=== PATIENT | female | born 1955 | race Caucasian/White ===

== ENCOUNTER 2019-06-20 05:16 | Inpatient (IN) ==
[2019-06-12 15:28] LABS: Appearance,Urine CLEAR; Bacteria,Urine 0 /hpf (0); Bilirubin,Urine NEG (NEG); Color,Urine YELLOW; Culture Indicated,Urine YES; Glucose,Urine (UA) NEGATIVE (NEG); Ketones,Urine NEG (NEG); Leukocyte Esterase,Urine 25 /uL (NEG); Mucus,Urine FEW /hpf (0); Nitrate,Urine POS (NEG); Protein,Urine NEG (NEG); Specific Gravity,Urine 1.013 (1.000-1.035); Urine Blood 0.2 mg/dL (<0.03); Urine Hyaline Cast 20 /lpf (0-2); Urine RBC < 1 /hpf (0-1); Urine Squamous Epithelial Cell 0 /hpf (0-4); Urine WBC 9 /hpf (0-4); Urobilinogen,Urine NEG (NEG)
[2019-06-12 15:29] LABS: INR 0.9 (0.9-1.1); Prothrombin Time 12.5 sec (11.9-14.5)
[2019-06-12 16:05] LABS: Blood Urea Nitrogen 19 mg/dl (8-23); Calcium 9.3 mg/dl (8.6-10.4); Carbon Dioxide 28 mmol/L (22-30); Chloride 98 mmol/L (96-108); Glomerular Filtration Rate 53; Glucose 72 mg/dL (70-105)
[2019-06-12 16:07] LABS: Basophils # (Auto) 0 K/mcL (0.0-0.3); Basophils % (Auto) 0.3 % (0.0-2.0); Eosinophils # (Auto) 0.1 K/mcL (0.0-0.7); Eosinophils % (Auto) 1.3 % (0.0-7.0); Granulocytes % (Auto) 65.5 % (38.0-78.0); Hematocrit 36.8 % (36.0-48.0); Hemoglobin 12.4 g/dL (12.0-15.0); Lymphocytes # (Auto) 3.3 K/mcL (1.5-4.8); Lymphocytes % (Auto) 28.7 % (15.5-49.0); Mean Cell Volume 88.2 fL (80.0-100.0); Mean Corpuscular HGB Conc 33.6 g/dL (31.0-36.0); Mean Platelet Volume 8.1 fL (7.4-10.4); Monocytes # (Auto) 0.5 K/mcL (0.1-0.9); Monocytes % (Auto) 4.2 % (1.0-12.0); Platelet Count 388 K/mcL (140-440); RBC 4.18 M/mcL (4.00-5.20); Red Cell Distribution Width 12.9 % (11.5-14.5); WBC 11.6 K/mcL (4.5-11.0)
[~2019-06-20 05:16] MED LIST: IPRATROPIUM/ALBUTEROL 3 ML AMPUL.NEB NEB PRN; SCOPOLAMINE 1 PATCH PATCH TOPICAL PRN
[2019-06-20] MEDS ORDERED: 0.9 % SODIUM CHLORIDE 9 ML, KETOROLAC 30 MG, ROPIVACAINE HCL/PF 49.5 ML, EPINEPHrine 0.... IJ SCH (06:00)
[2019-06-20] MEDS ORDERED: ceFAZolin 2 GM in DEXTROSE 5% IN WATER 50 ML IV SCH (06:00)
[2019-06-20 06:41] LABS: Appearance,Urine CLEAR; Bacteria,Urine 0 /hpf (0); Bilirubin,Urine NEG (NEG); Color,Urine YELLOW; Culture Indicated,Urine NO; Glucose,Urine (UA) NORM (NEG); Ketones,Urine NEG (NEG); Leukocyte Esterase,Urine NEG /uL (NEG); Mucus,Urine FEW /hpf (0); Nitrate,Urine NEG (NEG); Protein,Urine NEG (NEG); Urine Blood TRACE ery/mcL (<5); Urine Hyaline Cast 6 /lpf (0-2); Urine RBC 9 /hpf (0-1); Urine Squamous Epithelial Cell 0 /hpf (0-4); Urine WBC 1 /hpf (0-4)
[2019-06-20] MEDS ORDERED: GENTAMICIN SULFATE 800 MG/20 ML VIAL IR ONE (06:56)
[2019-06-20] MEDS ORDERED: TRANEXAMIC ACID 1,000 MG/10 ML VIAL IV ONE ×2 (07:35→09:34)
[2019-06-20] MEDS ORDERED: ONDANSETRON 4 MG/2 ML VIAL IV ONE (07:35)
[2019-06-20] MEDS ORDERED: GLYCOPYRROLATE 0.2 MG/ML VIAL IV ONE (07:35)
[2019-06-20] MEDS ORDERED: PROPOFOL 200 MG/20 ML VIAL IV ONE (07:35)
[2019-06-20] MEDS ORDERED: MIDAZOLAM 5 MG/5 ML VIAL IV ONE (07:35)
[2019-06-20] MEDS ORDERED: LIDOCAINE HCL/PF 100 MG/5 ML SYRINGE IV ONE (07:35)
[2019-06-20] MEDS ORDERED: ePHEDrine 50 MG/ML AMPUL IV ONE (07:35)
[2019-06-20] MEDS ORDERED: DEXAMETHASONE 10 MG/ML VIAL IV ONE (07:35)
[2019-06-20] MEDS ORDERED: HYDROmorphone 2 MG/ML VIAL IV PRN (08:43)
[2019-06-20] MEDS ORDERED: ACETAMINOPHEN 1,000 MG/100 ML BOTTLE IV ONE (08:43)
[2019-06-20] MEDS ORDERED: METOPROLOL TARTRATE 5 MG/5 ML VIAL IV PRN (08:43)
[2019-06-20] MEDS ORDERED: NALOXONE HCL 0.4 MG/ML VIAL IV PRN (08:43)
[2019-06-20] MEDS ORDERED: diphenhydrAMINE 50 MG/ML VIAL IV PRN (08:43)
[2019-06-20] MEDS ORDERED: FLUMAZENIL 0.1 MG/ML ML IV PRN (08:43)
[2019-06-20] MEDS ORDERED: ePHEDrine 50 MG/ML AMPUL IV PRN (08:43)
[2019-06-20] MEDS ORDERED: PROMETHAZINE 25 MG/ML VIAL IV PRN (08:43)
[2019-06-20] MEDS ORDERED: IPRATROPIUM/ALBUTEROL 3 ML AMPUL.NEB NEB PRN (08:43)
[2019-06-20] MEDS ORDERED: ONDANSETRON 4 MG/2 ML VIAL IV PRN ×2 (08:43→09:34)
[2019-06-20] MEDS ORDERED: METHOCARBAMOL 1,000 MG/10 ML VIAL IV PRN (08:43)
[2019-06-20] MEDS ORDERED: ATROPINE SULFATE 0.4 MG/ML VIAL IV PRN (08:43)
[2019-06-20] MEDS ORDERED: LACTATED RINGERS 1,000 ML IV SCH (08:45)
[2019-06-20] MEDS ORDERED: BISACODYL 10 MG SUPP.RECT PR PRN (09:34)
[2019-06-20] MEDS ORDERED: FLEETS ADULT ENEMA PR PRN (09:34)
[2019-06-20] MEDS ORDERED: MAGNESIUM HYDROXIDE 30 ML ORAL.SUSP PO PRN (09:34)
[2019-06-20] MEDS ORDERED: BENZOCAINE/MENTHOL 1 LOZENGE PO PRN (09:34)
[2019-06-20] MEDS ORDERED: POLYETHYLENE GLYCOL 3350 17 GM PACKET PO PRN (09:34)
[2019-06-20] MEDS ORDERED: PSEUDOEPHEDRINE PO PRN (09:38)
[2019-06-20] MEDS ORDERED: LORATADINE PO PRN (09:38)
[2019-06-20] MEDS ORDERED: ALBUTEROL SULFATE 1 PUFF INHALER IH PRN (09:38)
--- NOTE | 2019-06-20 09:41 | Brief Operative Note ---
Date of procedure: 06/20/19 Pre-op diagnosis: DJD right knee Post-op diagnosis: same Procedure: JORDAN knee Grafts/Implants: Yes (reuben knee, CR) Anesthesia: LULAA Surgeon: Lucas Aguila Shirt Turner: Tomy Johns Estimated blood loss (cc): 100 Tourniquet Time (Minutes): 72 Specimens Removed/Pathology: none sent Condition: stable Disposition: PACU
[2019-06-20] MEDS ORDERED: ROPIVACAINE HCL/PF 20 ML VIAL IJ ONE (09:50)
[2019-06-20] MEDS: fentaNYL 100 MCG/2 ML VIAL IV PRN ×4 (09:58→11:58)
--- NOTE | 2019-06-20 11:17 | XRay Report ---
HISTORY: Postop right knee arthroplasty FINDINGS: There is a well-positioned right total knee prosthesis. There is no fracture. On the lateral view a faint soft tissue calcification is seen above the patella, possibly in the suprapatellar bursa. There are other small soft tissue calcifications seen along the posterior aspect of the joint, on the lateral view. One of these may be the fabella. IMPRESSION: Well-positioned right knee prosthesis Interpreted and Authenticated by: Felipe Rosen 06/20/19
[2019-06-20] MEDS: 0.9 % SODIUM CHLORIDE 1,000 ML IV SCH (12:02)
[2019-06-20] MEDS: HYDROcodone/APAP 10/325MG TABLET PO PRN ×3 (12:13→21:43)
[2019-06-20] MEDS: 0.9 % SODIUM CHLORIDE 10 ML SYRINGE IV SCH ×2 (14:09→21:44)
[2019-06-20] MEDS: GABAPENTIN 300 MG CAPSULE PO SCH ×2 (14:42→20:17)
[2019-06-20] MEDS: ceFAZolin 1 GM VIAL IV SCH ×2 (14:42→22:40)
[2019-06-20] MEDS: ACETAMINOPHEN W/CODEINE #3 1 TABLET PO PRN ×2 (14:42→20:16)
[2019-06-20] MEDS ORDERED: LISINOPRIL 10 MG TABLET PO SCH (15:00)
[2019-06-20] MEDS: CARVEDILOL 6.25 MG TABLET PO SCH (17:15)
[2019-06-20] MEDS: DOCUSATE SODIUM 100 MG CAPSULE PO SCH (20:17)
[2019-06-20] MEDS: ASPIRIN 81 MG TAB.CHEW PO SCH (20:17)
[2019-06-20] MEDS ORDERED: SENNOSIDES 1 TABLET PO SCH (21:00)
[2019-06-20] MEDS ORDERED: clonazePAM 0.5 MG TABLET PO SCH (21:00)
[2019-06-20] MEDS ORDERED: ESCITALOPRAM 20 MG TABLET PO SCH (21:00)
[2019-06-21] MEDS: 0.9 % SODIUM CHLORIDE 1,000 ML IV SCH (01:08)
[2019-06-21] MEDS: HYDROcodone/APAP 10/325MG TABLET PO PRN (02:21)
[2019-06-21] MEDS: ACETAMINOPHEN W/CODEINE #3 1 TABLET PO PRN (04:28)
[2019-06-21] MEDS: 0.9 % SODIUM CHLORIDE 10 ML SYRINGE IV SCH (05:31)
[2019-06-21 05:39] LABS: Hematocrit 31.4 % (36.0-48.0); Hemoglobin 10.6 g/dL (12.0-15.0)
--- NOTE | 2019-06-21 06:41 | Discharge Summary ---
Providers - Providers Patient information: Note initiated : 06/21/19 at 6:39 am Service Date, if different from initiated Date: [] Patient: Huyen Long 63 y/o F admitted on 06/20/19 for Right Total Knee Arthroplasty Jonathan. Chief Complaint: [] Date of admission: 06/20/19 Discharge date: 06/21/19 Hospitalization Hospital Course: total knee replacement PPOD1 good rehab, no complications Discharge diagnosis: total knee replacement status right Procedures: TKR R Exam - Exam Clean and dry: Yes Weight bearing status: full Range of motion: 0-100 actively Ortho Discharge - TKA - Patient Instructions Diet: Regular Diet Total Knee Protocol: For Total Knee: Start ROM HUNG with stationary bike or rocking chair. Work on gaining full extension of knee. Posterior dislocation precautions provided. Hip abductor strengthening and gait training instructions provided. Apply Cryocuff as instructed. - Follow Up Plan Follow Up Appointments: Tomy Jonhs PA-C [Physician Digital Operations Analyst] - 07/03/19 2:20 pm Disposition: Home, Self-Care Prognosis: Good Rehab Potential: Good I certify that the patient requires SNF services: No - Orders For Discharge Prescriptions: oxyCODONE HCL [Roxicodone] 10 mg PO Q4-6HP PRN #40 tab PRN Reason: Pain Level 3-6 Additional Discharge Orders: Physical Therapy at Discharge - TKA Location: None Selected Pending Studies Resuscitation Status Full Code Diet Regular Diet Start MonJun 20 Lunch Acetaminophen/Codeine Phosphate (Tylenol #3) 1 tab PO Q6HP PRN PRN Reason: Pain Last Admin: 06/21/19 04:28 Dose: 1 tab Documented by: Admin: 06/20/19 20:16 Dose: 1 tab Documented by: Admin: 06/20/19 14:42 Dose: 1 tab Documented by: [id number] Hydrocodone Bitart/Acetaminophen (Towner 10/325mg) 0 tab PO Q4HP PRN PRN Reason: PAIN LEVEL 3-6 Last Admin: 06/21/19 02:21 Dose: 2 tab Documented by: Admin: 06/20/19 21:43 Dose: 2 tab Documented by: Admin: 06/20/19 17:15 Dose: 2 tab Documented by: [id number] Admin: 06/20/19 12:13 Dose: 2 tab Documented by: [id number] Aspirin (Aspirin) 81 mg PO BID [facility] Last Admin: 06/20/19 20:17 Dose: 81 mg Documented by: SHANNA [facility] Last Admin: 06/20/19 17:15 Dose: 6.25 mg Documented by: MARGARET Clonazepam (Klonopin) 1 mg PO [facility] Last Admin: 06/20/19 20:16 Dose: 1 mg Documented by: SHANNA Docusate Sodium (Colace) 100 mg PO BID [facility] Last Admin: 06/20/19 20:17 Dose: 100 mg Documented by: SHANNA Escitalopram Oxalate (Lexapro) 20 mg PO [facility] Last Admin: 06/20/19 20:17 Dose: 20 mg Documented by: SHANNA Gabapentin (Neurontin) 300 mg PO TID [facility] Last Admin: 06/20/19 20:17 Dose: 300 mg Documented by: Admin: 06/20/19 14:42 Dose: 300 mg Documented by: MARGARET Lisinopril (Zestril) 10 mg PO DAILY@1500 [facility] Last Admin: 06/20/19 14:42 Dose: 10 mg Documented by: MARGARET Ondansetron HCl (Zofran) 4 mg IV Q4HP PRN PRN Reason: Nausea And Vomiting Last Admin: 06/20/19 22:53 Dose: 4 mg Documented by: SHANNA Senna (Senokot) 2 tab PO [facility] Last Admin: 06/20/19 20:17 Dose: 2 tab Documented by: SHANNA Sodium Chloride (Saline Flush) 10 ml IV Q8 [facility] Last Admin: 06/21/19 05:31 Dose: Not Given Documented by: Admin: 06/20/19 21:44 Dose: Not Given Documented by: Admin: 06/20/19 14:09 Dose: Not Given Documented by: [id number] Shift Summary 06/21/19 05:14 Shift Summary by Pema Dowling VSS on 2.5L O2 via NC at NOC, pt. normally uses O2 at NOC. A&Ox4. Medicated for R knee pain with 10mg Towner two tablets approx. Q4H. Tylenol 3 approx. Q6H. IV to LFA is SL. Dressing to R knee is C/D/I. Up to BSC with FWW, gait belt and SBA. Up to ambulate in hallway for approx. 100ft. Used CPM up to 45 degrees for approx. 45min. Cryocuff on/off. Cold packs given for chronic back pain as requested. Initialized on 06/21/19 05:14 - END OF NOTE
[2019-06-21] MEDS: oxyCODONE HCL 5 MG TABLET PO PRN ×2 (07:26→11:40)
[2019-06-21] MEDS: CARVEDILOL 6.25 MG TABLET PO SCH (07:26)
[2019-06-21] MEDS ORDERED: OMEPRAZOLE 20 MG CAPSULE PO SCH (07:30)
--- NOTE | 2019-06-21 08:59 | Operative Note ---
DATE OF OPERATION: 06/20/2019 PREOPERATIVE DIAGNOSIS: Degenerative joint disease of the right knee. POSTOPERATIVE DIAGNOSIS: Degenerative joint disease of the right knee. OPERATION: Right total knee replacement. SURGEON: Lucas Aguila M.D. BREAK OUT WORKER: Tomy Johns PA-C. The PA's assistance was required for the safe and efficient completion of the entire case. This provider's expertise and technical skill were required throughout the case. The PA assisted with preoperative coordination, intraoperative retraction, wound closure, dressing and splint application, as well as postoperative documentation and care coordination. ANESTHESIA: General. TOURNIQUET TIME: 75 minutes. SUMMARY OF PROCEDURE: General anesthesia was attained. The right leg was prepped and draped. A midline incision was made from the quadriceps to the tibial tubercle. This was taken down sharply to the quadriceps and medial retinacular layer. A midvastus approach was used. The medial retinaculum was released as well. Also, two stab incisions were made above the incision in the femur. Blunt dissection was used to get down to the femur, and 4.0 pins were placed into the femur under power. We next placed the array setup on the femur. On the tibial side, two 3.2 pins were placed. This was followed by the del real for the array and then the array. At this point, we located the hip center by counterclockwise motion of the knee. The two checkpoints were placed, one in the femur and one in the tibia. The medial malleoli was located, as was the lateral malleolus. We then located forty registration points on the femur and forty on the tibia. We then did balancing of the joint and flexion and extension using the robotic system. The extension gaps were 1 mm tighter than the flexion gaps. Bone spurs were removed. Irrisept was applied prior to the next part of the surgery. Using the Room system, the cuts were made in the tibia and in the femur. The femur sized to a 3. The rotation of the tibia was adjusted to cover the tibia well and this also resulted in using a #3 size. The tibia was prepared by broaching and then drilling the intramedullary canal. The peg holes were cut through the femur for the prosthesis. The patella was everted. A 10 mm resection was done, bringing the size down from a 24 to 14 thickness. The patella sized to a 32. The peg holes were prepared with the drill as well. Thorough irrigation was done, irrigation of the bone surfaces. Antibiotic cement was used due to the patient's history of chronic UTIs. The components were cemented in and the knee was kept in extension as the cement hardened. Excess cement was removed throughout. After the cement had hardened, the no-touch test was repeated and there was no lateral retinacular tightness. Checkpoints were removed, as were the arrays and the pins used on the femur and the tibia for the arrays. The quadriceps and medial retinaculum were closed using Stratafix. The subcutaneous tissue after irrigation was closed with buried 2-0 Monocryl. The skin was closed with Dura-De La Rosa. A sterile compressive dressing was applied. During the surgery we also used multimodal infiltration of the periosteal layers and the tendons for postoperative analgesia. The sponge and needle count was correct. The patient tolerated the procedure well. Estimated blood loss was 100 mL. She was taken to the recovery room in stable condition. TJF:arian Job ID: [id number] Doc ID: [id number] Lucas Aguila MD
[2019-06-21] MEDS ORDERED: FLUTICASONE PROPIONATE SPRAY.NAS NS SCH (09:00)
[2019-06-21] MEDS ORDERED: NITROFURANTOIN SR 100 MG CAPSULE PO SCH (09:00)
[2019-06-21] MEDS ORDERED: SPIRONOLACTONE 25 MG TABLET PO SCH (09:00)
[2019-06-21] MEDS ORDERED: buPROPion 150 MG TAB.XL.24H PO SCH (09:00)
[2019-06-21] MEDS ORDERED: FUROSEMIDE 40 MG TABLET PO SCH (09:00)
[2019-06-21] MEDS ORDERED: MULTIVIT,THER IRON,CA,FA & MIN 1 TABLET PO SCH (09:00)
[2019-06-21] MEDS: ASPIRIN 81 MG TAB.CHEW PO SCH (09:07)
[2019-06-21] MEDS: DOCUSATE SODIUM 100 MG CAPSULE PO SCH (09:07)
[2019-06-21] MEDS: GABAPENTIN 300 MG CAPSULE PO SCH (09:07)
== END 2019-06-21 11:48 | disposition home or self-care (01) | DRG 470 ==
LOC: MEDSUR 05:16
PROVIDERS: ADMIT Orthopaedic Surgery Foot and Ankle Surgery; ATTEND Orthopaedic Surgery Foot and Ankle Surgery

== ENCOUNTER 2019-08-08 04:58 | Inpatient (IN) ==
[2019-07-31 18:07] LABS: Basophils # (Auto) 0 K/mcL (0.0-0.3); Basophils % (Auto) 0.4 % (0.0-2.0); Eosinophils # (Auto) 0.4 K/mcL (0.0-0.7); Granulocytes % (Auto) 58.7 % (38.0-78.0); Hematocrit 33.2 % (36.0-48.0); Hemoglobin 11.1 g/dL (12.0-15.0); Lymphocytes # (Auto) 3.1 K/mcL (1.5-4.8); Lymphocytes % (Auto) 31.9 % (15.5-49.0); Mean Cell Volume 89.1 fL (80.0-100.0); Mean Corpuscular HGB Conc 33.2 g/dL (31.0-36.0); Mean Platelet Volume 8.2 fL (7.4-10.4); Monocytes # (Auto) 0.5 K/mcL (0.1-0.9); Platelet Count 425 K/mcL (140-440); RBC 3.73 M/mcL (4.00-5.20); Red Cell Distribution Width 12.6 % (11.5-14.5); WBC 9.7 K/mcL (4.5-11.0)
[2019-07-31 18:14] LABS: Appearance,Urine HAZY; Bilirubin,Urine NEG (NEG); Color,Urine YELLOW; Culture Indicated,Urine NO; Glucose,Urine (UA) NEGATIVE (NEG); Ketones,Urine NEG (NEG); Leukocyte Esterase,Urine NEG /uL (NEG); Nitrate,Urine NEG (NEG); Protein,Urine NEG (NEG); Specific Gravity,Urine 1.011 (1.000-1.035); Urine Blood NEG mg/dL (<0.03); Urobilinogen,Urine NEG (NEG)
[2019-07-31 18:21] LABS: Prothrombin Time 13.1 sec (11.9-14.5)
[2019-07-31 18:43] LABS: Blood Urea Nitrogen 14 mg/dl (8-23); Calcium 9.3 mg/dl (8.6-10.4); Carbon Dioxide 28 mmol/L (22-30); Chloride 99 mmol/L (96-108); Glomerular Filtration Rate 53; Glucose 81 mg/dL (70-105)
[2019-08-08] MEDS ORDERED: IPRATROPIUM/ALBUTEROL 3 ML AMPUL.NEB NEB PRN ×2 (05:00→08:12)
[2019-08-08] MEDS ORDERED: SCOPOLAMINE 1 PATCH PATCH TOPICAL PRN (05:00)
[2019-08-08] MEDS ORDERED: ceFAZolin 2 GM in DEXTROSE 5% IN WATER 50 ML IV SCH (06:00)
[2019-08-08] MEDS ORDERED: 0.9 % SODIUM CHLORIDE 9 ML, KETOROLAC 30 MG, ROPIVACAINE HCL/PF 49.5 ML, EPINEPHrine 0.... IJ SCH (06:00)
[2019-08-08] MEDS ORDERED: KETAMINE 100 MG/ML ML IV ONE (07:44)
[2019-08-08] MEDS ORDERED: DEXAMETHASONE 10 MG/ML VIAL IV ONE (07:44)
[2019-08-08] MEDS ORDERED: ONDANSETRON 4 MG/2 ML VIAL IV ONE (07:44)
[2019-08-08] MEDS ORDERED: PHENYLEPHRINE 10 MG/ML VIAL IV ONE (07:44)
[2019-08-08] MEDS ORDERED: TRANEXAMIC ACID 1,000 MG/10 ML VIAL IV ONE ×2 (07:44→09:28)
[2019-08-08] MEDS ORDERED: MIDAZOLAM 2 MG/2 ML VIAL IV ONE (07:44)
[2019-08-08] MEDS ORDERED: ePHEDrine 50 MG/ML AMPUL IV ONE (07:44)
[2019-08-08] MEDS ORDERED: ROPIVACAINE HCL/PF 20 ML VIAL IJ ONE (07:44)
[2019-08-08] MEDS ORDERED: LIDOCAINE HCL/PF 100 MG/5 ML SYRINGE IV ONE (07:44)
[2019-08-08] MEDS ORDERED: GLYCOPYRROLATE 0.2 MG/ML VIAL IV ONE (07:44)
[2019-08-08] MEDS ORDERED: PROPOFOL 200 MG/20 ML VIAL IV ONE (07:44)
[2019-08-08] MEDS ORDERED: LACTATED RINGERS 250 ML IV PRN (08:12)
[2019-08-08] MEDS ORDERED: NALOXONE HCL 0.4 MG/ML VIAL IV PRN (08:12)
[2019-08-08] MEDS ORDERED: METHOCARBAMOL 1,000 MG/10 ML VIAL IV PRN (08:12)
[2019-08-08] MEDS ORDERED: FLUMAZENIL 0.1 MG/ML ML IV PRN (08:12)
[2019-08-08] MEDS ORDERED: ONDANSETRON 4 MG/2 ML VIAL IV PRN ×2 (08:12→09:28)
[2019-08-08] MEDS ORDERED: MEPERIDINE 25 MG/ML SYRINGE IV PRN (08:12)
[2019-08-08] MEDS ORDERED: ACETAMINOPHEN 1,000 MG/100 ML BOTTLE IV ONE (08:12)
[2019-08-08] MEDS ORDERED: fentaNYL 100 MCG/2 ML VIAL IV PRN (08:12)
[2019-08-08] MEDS ORDERED: BENZOCAINE/MENTHOL 1 LOZENGE PO PRN ×2 (08:12→09:28)
[2019-08-08] MEDS ORDERED: LACTATED RINGERS 1,000 ML IV SCH (08:15)
[2019-08-08] MEDS ORDERED: GENTAMICIN SULFATE 800 MG/20 ML VIAL IR ONE (08:37)
[2019-08-08] MEDS ORDERED: METHOCARBAMOL 750 MG TABLET PO PRN (09:28)
[2019-08-08] MEDS ORDERED: POLYETHYLENE GLYCOL 3350 17 GM PACKET PO PRN (09:28)
[2019-08-08] MEDS ORDERED: BISACODYL 10 MG SUPP.RECT PR PRN (09:28)
[2019-08-08] MEDS ORDERED: FLEETS ADULT ENEMA PR PRN (09:28)
[2019-08-08] MEDS ORDERED: HYDROcodone/APAP 10/325MG TABLET PO PRN (09:28)
[2019-08-08] MEDS ORDERED: TEMAZEPAM 15 MG CAPSULE PO PRN (09:28)
[2019-08-08] MEDS ORDERED: MAGNESIUM HYDROXIDE 30 ML ORAL.SUSP PO PRN (09:28)
[2019-08-08] MEDS ORDERED: LORATADINE PO PRN (09:33)
[2019-08-08] MEDS ORDERED: ALBUTEROL SULFATE 1 PUFF INHALER INH PRN (09:33)
[2019-08-08] MEDS ORDERED: PSEUDOEPHEDRINE PO PRN (09:33)
--- NOTE | 2019-08-08 09:37 | Brief Operative Note ---
Date of procedure: 08/08/19 Pre-op diagnosis: DJD L knee Post-op diagnosis: same Procedure: JORDAN TKR left Grafts/Implants: Yes (triathlon knee 3 femur, 3 tibia, 32 patella, 10mm CR insert) Anesthesia: KENNA Surgeon: Lucas Aguila Chain Maker Hand: Tomy Johns Estimated blood loss (cc): 100 Tourniquet Time (Minutes): 69 Specimens Removed/Pathology: none sent Condition: stable Disposition: PACU
--- NOTE | 2019-08-08 10:50 | XRay Report ---
CLINICAL INFORMATION: post op total knee COMPARISON: None. FINDINGS: Tibiofemoral component of total knee prosthesis is anatomically aligned. There is slight medial tilting of the patella appreciated the sunrise view. No osseous abnormality. Mild soft tissue swelling. IMPRESSION: Slight medial tilting of the patella on sunrise view. Significance uncertain. The tibiofemoral component is anatomically aligned Interpreted and Authenticated by: Homero Sapp 08/08/19
[2019-08-08] MEDS: 0.9 % SODIUM CHLORIDE 1,000 ML IV SCH (11:08)
[2019-08-08] MEDS: 0.9 % SODIUM CHLORIDE 10 ML SYRINGE IV SCH ×2 (15:23→22:05)
[2019-08-08] MEDS: ceFAZolin 1 GM VIAL IV SCH ×2 (15:24→23:19)
[2019-08-08] MEDS: LISINOPRIL 10 MG TABLET PO SCH (15:24)
[2019-08-08] MEDS: GABAPENTIN 300 MG CAPSULE PO SCH ×2 (15:24→20:40)
[2019-08-08] MEDS: oxyCODONE HCL 5 MG TABLET PO PRN ×2 (16:42→20:54)
[2019-08-08] MEDS: oxyCODONE/APAP 5/325MG TABLET PO PRN ×2 (16:43→20:53)
[2019-08-08] MEDS: CARVEDILOL 6.25 MG TABLET PO SCH (16:43)
[2019-08-08] MEDS: clonazePAM 1 MG TABLET PO SCH (20:40)
[2019-08-08] MEDS: DOCUSATE SODIUM 100 MG CAPSULE PO SCH (20:40)
[2019-08-08] MEDS: ASPIRIN 81 MG TAB.CHEW PO SCH (20:40)
[2019-08-08] MEDS ORDERED: SENNOSIDES 1 TABLET PO SCH (21:00)
[2019-08-08] MEDS ORDERED: ESCITALOPRAM 20 MG TABLET PO SCH (21:00)
[2019-08-08] MEDS ORDERED: MELATONIN 3 MG TABLET PO SCH (21:00)
[2019-08-08] MEDS ORDERED: diphenhydrAMINE 25 MG CAPSULE PO PRN (21:57)
[2019-08-08] MEDS ORDERED: diphenhydrAMINE 25 MG CAPSULE ONE (22:03)
[2019-08-09] MEDS: 0.9 % SODIUM CHLORIDE 1,000 ML IV SCH ×2 (00:25→13:10)
[2019-08-09] MEDS: oxyCODONE HCL 5 MG TABLET PO PRN (01:00)
[2019-08-09] MEDS: oxyCODONE/APAP 5/325MG TABLET PO PRN (01:01)
[2019-08-09] MEDS: 0.9 % SODIUM CHLORIDE 10 ML SYRINGE IV SCH ×2 (05:24→14:44)
[2019-08-09 05:37] LABS: Basophils # (Auto) 0 K/mcL (0.0-0.3); Basophils % (Auto) 0.2 % (0.0-2.0); Eosinophils # (Auto) 0 K/mcL (0.0-0.7); Eosinophils % (Auto) 0 % (0.0-7.0); Granulocytes % (Auto) 85.9 % (38.0-78.0); Hematocrit 27.2 % (36.0-48.0); Hemoglobin 9.2 g/dL (12.0-15.0); Lymphocytes # (Auto) 1.6 K/mcL (1.5-4.8); Lymphocytes % (Auto) 10.5 % (15.5-49.0); Mean Cell Volume 88.1 fL (80.0-100.0); Mean Corpuscular HGB Conc 33.7 g/dL (31.0-36.0); Mean Platelet Volume 7.6 fL (7.4-10.4); Monocytes # (Auto) 0.5 K/mcL (0.1-0.9); Monocytes % (Auto) 3.4 % (1.0-12.0); Platelet Count 403 K/mcL (140-440); RBC 3.09 M/mcL (4.00-5.20); Red Cell Distribution Width 12.6 % (11.5-14.5); WBC 15.3 K/mcL (4.5-11.0)
[2019-08-09] MEDS ORDERED: OMEPRAZOLE 20 MG CAPSULE PO SCH (07:30)
--- NOTE | 2019-08-09 07:37 | Discharge Summary ---
Providers - Providers Patient information: Note initiated : 08/09/19 at 7:35 am Service Date, if different from initiated Date: [] Patient: Huyen Long 64 y/o F admitted on 08/08/19 for Left Total Knee Arthroplasty Jonathan. Chief Complaint: [] Discharge date: 08/09/19 Hospitalization Discharge diagnosis: Left total knee arthroplasty Exam - Exam Incision healing: Yes Weight bearing status: full Ortho Discharge - TKA - Patient Instructions Diet: Regular Diet Activity: activity as tolerated, ambulate with assistive device Total Knee Protocol: For Total Knee: Start ROM HUNG with stationary bike or rocking chair. Work on gaining full e xtension of knee. Posterior dislocation precautions provided. Hip abductor strengthening and gait training instructions provided. Apply Cryocuff as instructed. Dressing Care: May shower in 2 days Additional Dressing Instructions: Apply scotty to leg for swelling but may remove for up to half the day to air out. Try to elevate leg above heart for pain. Ice for swelling and pain. - Follow Up Plan Follow Up Appointments: Tomy Johns PA-C [Physician Theatrical Dresser] - 08/21/19 11:20 am Disposition: Home, Self-Care Prognosis: Good Rehab Potential: Good Overall status at discharge: patient is progressing back to baseline Pending Studies Resuscitation Status Full Code Diet Regular Diet Start Laura Aug 08 Lunch Aspirin (Aspirin) 81 mg PO BID [facility] Last Admin: 08/08/19 20:40 Dose: 81 mg Documented by: CICI Carvedilol (Coreg) 6.25 mg PO BIDCC [facility] Last Admin: 08/08/19 16:43 Dose: 6.25 mg Documented by: JUDIT Clonazepam (Klonopin) 1 mg PO BID [facility] Last Admin: 08/08/19 20:40 Dose: 1 mg Documented by: CICI Docusate Sodium (Colace) 100 mg PO BID [facility] Last Admin: 08/08/19 20:40 Dose: 100 mg Documented by: CICI Escitalopram Oxalate (Lexapro) 20 mg PO HS [facility] Last Admin: 08/08/19 20:40 Dose: 20 mg Documented by: CICI Gabapentin (Neurontin) 300 mg PO TID [facility] Last Admin: 08/08/19 20:40 Dose: 300 mg Documented by: Admin: 08/08/19 15:24 Dose: 300 mg Documented by: JUDIT Sodium Chloride (Sodium Chloride 0.9%) 1,000 mls @ 75 mls/hr IV .[id number] [facility] Last Infusion: 08/09/19 05:14 Dose: 0 mls/hr Documented by: Admin: 08/09/19 00:25 Dose: 75 mls/hr Documented by: Infusion: 08/09/19 00:25 Dose: 75 mls/hr Documented by: Admin: 08/08/19 11:08 Dose: 75 mls/hr Documented by: JUDIT Lisinopril (Zestril) 10 mg PO DAILY@1500 [facility] Last Admin: 08/08/19 15:24 Dose: 10 mg Documented by: JUDIT Melatonin (Melatonin 3mg Tablet) 9 mg PO HS [facility] Last Admin: 08/08/19 20:40 Dose: 9 mg Documented by: CICI Methocarbamol (Robaxin) 750 mg PO Q6HP PRN PRN Reason: Muscle Spasm Last Admin: 08/08/19 15:27 Dose: 750 mg Documented by: JUDIT Morphine Sulfate (Morphine) 0 mg IV Q1HP PRN PRN Reason: PAIN LEVEL > 6 Last Admin: 08/09/19 07:08 Dose: 4 mg Documented by: Admin: 08/09/19 03:27 Dose: 4 mg Documented by: Admin: 08/08/19 18:09 Dose: 4 mg Documented by: Admin: 08/08/19 15:50 Dose: 2 mg Documented by: Admin: 08/08/19 12:44 Dose: 2 mg Documented by: JUDIT Omeprazole (Prilosec) 40 mg PO ACB [facility] Last Admin: 08/09/19 07:07 Dose: 40 mg Documented by: JEMMA Oxycodone HCl (Roxicodone) 2.5 - 5 mg PO Q4HP PRN PRN Reason: Pain Last Admin: 08/09/19 01:00 Dose: 2.5 mg Documented by: Admin: 08/08/19 20:54 Dose: 2.5 mg Documented by: Admin: 08/08/19 16:42 Dose: 2.5 mg Documented by: JUDIT Oxycodone/Acetaminophen (Percocet 5-325 Mg) 1 - 2 tab PO Q4HP PRN PRN Reason: Pain Last Admin: 08/09/19 01:01 Dose: 1 tab Documented by: Admin: 08/08/19 20:53 Dose: 1 tab Documented by: Admin: 08/08/19 16:43 Dose: 1 tab Documented by: JUDIT Senna (Senokot) 2 tab PO HS [facility] Last Admin: 08/08/19 20:40 Dose: 2 tab Documented by: CICI Sodium Chloride (Saline Flush) 10 ml IV Q8 [facility] Last Admin: 08/09/19 05:24 Dose: 10 ml Documented by: Admin: 08/08/19 22:05 Dose: 10 ml Documented by: Admin: 08/08/19 15:23 Dose: Not Given Documented by: JUDIT Temazepam (Restoril) 15 mg PO HSP PRN PRN Reason: Insomnia Last Admin: 08/08/19 22:03 Dose: 15 mg Documented by: CICI Shift Summary 08/09/19 04:34 Shift Summary by Evelyn Jaimes Patient alert and oriented x4. Patient with chronic pain from her back, neck and rt leg sciatica. Medicated with Percocet 5/325 1 tab + 2.5 mg Roxicodone together each time twice and Morphine 4 mg IV x1 with moderate effect. Uses K- pad for her back. Complained of itching last night. Given benadryl 25mg PO as ordered with good relief. Patient states she thinks its from the Robaxin. No shortness of breath noted. Up with standby assist to the bathroom. Voids adequately. Uses pull-ups for incontinence. Left knee dressing CDI. Cryo-cuff applied. AYLEEN pumps on bilateral feet. Tolerated CPM 0-45 degrees for 1.5 hours. Patient eating and drinking. IVF discontinued. IV on left index finger kept saline locked. Patient uses 2.5L nasal cannula at night, VSS. Initialized on 08/09/19 04:34 - END OF NOTE
--- NOTE | 2019-08-09 07:46 | Discharge Summary ---
Providers - Providers Patient information: Note initiated : 08/09/19 at 7:44 am Service Date, if different from initiated Date: [] Patient: Huyen Long 64 y/o F admitted on 08/08/19 for Left Total Knee Arthroplasty Jonathan. Chief Complaint: [] Discharge date: 08/09/19 Hospitalization Hospital Course: Patient was admitted after surgery for pain control and PT. She had trouble with pain control and will be discharged on morphine per Dr. Duarte request. Follow up in 2 weeks for post operative care. Discharge diagnosis: s/p Left total knee arthroplasty Exam - Exam Incision healing: Yes Weight bearing status: full Ortho Discharge - TKA - Patient Instructions Diet: Regular Diet Activity: activity as tolerated, ambulate with assistive device Total Knee Protocol: For Total Knee: Start ROM HUNG with stationary bike or rocking chair. Work on gaining full extension of knee. Posterior dislocation precautions provided. Hip abductor strengthening and gait training instructions provided. Apply Cryocuff as instructed. - Follow Up Plan Follow Up Appointments: Tomy Johns PA-C [Physician Senior Animal Trainer] - 08/21/19 11:20 am Disposition: Home, Self-Care Prognosis: Good Rehab Potential: Good - Orders For Discharge Prescriptions: Aspirin 81 mg PO BID #30 tab.chew [facility] 15 mg PO Q4-6HP PRN #60 tab PRN Reason: Pain Prescription Printed Additional Discharge Orders: Physical Therapy at Discharge - TKA Location: None Selected Walker Location: None Selected Pending Studies Resuscitation Status Full Code Diet Regular Diet Start Laura Aug 08 Lunch Aspirin (Aspirin) 81 mg PO BID [facility] Last Admin: 08/08/19 20:40 Dose: 81 mg Documented by: CICI [facility] Last Admin: 08/08/19 16:43 Dose: 6.25 mg Documented by: JUDIT Clonazepam (Klonopin) 1 mg PO BID [facility] Last Admin: 08/08/19 20:40 Dose: 1 mg Documented by: CICI Docusate Sodium (Colace) 100 mg PO BID [facility] Last Admin: 08/08/19 20:40 Dose: 100 mg Documented by: CICI Escitalopram Oxalate (Lexapro) 20 mg PO [facility] Last Admin: 08/08/19 20:40 Dose: 20 mg Documented by: CICI Gabapentin (Neurontin) 300 mg PO TID [facility] Last Admin: 08/08/19 20:40 Dose: 300 mg Documented by: Admin: 08/08/19 15:24 Dose: 300 mg Documented by: JUDIT Sodium Chloride (Sodium Chloride 0.9%) 1,000 mls @ 75 mls/hr IV .[id number] [facility] Last Infusion: 08/09/19 05:14 Dose: 0 mls/hr Documented by: Admin: 08/09/19 00:25 Dose: 75 mls/hr Documented by: Infusion: 08/09/19 00:25 Dose: 75 mls/hr Documented by: Admin: 08/08/19 11:08 Dose: 75 mls/hr Documented by: JUDIT Lisinopril (Zestril) 10 mg PO DAILY@1500 [facility] Last Admin: 08/08/19 15:24 Dose: 10 mg Documented by: JUDIT Melatonin (Melatonin 3mg Tablet) 9 mg PO [facility] Last Admin: 08/08/19 20:40 Dose: 9 mg Documented by: ICCI Methocarbamol (Robaxin) 750 mg PO Q6HP PRN PRN Reason: Muscle Spasm Last Admin: 08/08/19 15:27 Dose: 750 mg Documented by: JUDIT Morphine Sulfate (Morphine) 0 mg IV Q1HP PRN PRN Reason: PAIN LEVEL > 6 Last Admin: 08/09/19 07:08 Dose: 4 mg Documented by: Admin: 08/09/19 03:27 Dose: 4 mg Documented by: Admin: 08/08/19 18:09 Dose: 4 mg Documented by: Admin: 08/08/19 15:50 Dose: 2 mg Documented by: Admin: 08/08/19 12:44 Dose: 2 mg Documented by: JUDIT Omeprazole (Prilosec) 40 mg PO ACB [facility] Last Admin: 08/09/19 07:07 Dose: 40 mg Documented by: JEMMA Senna (Senokot) 2 tab PO [facility] Last Admin: 08/08/19 20:40 Dose: 2 tab Documented by: CICI Sodium Chloride (Saline Flush) 10 ml IV Q8 [facility] Last Admin: 08/09/19 05:24 Dose: 10 ml Documented by: Admin: 08/08/19 22:05 Dose: 10 ml Documented by: Admin: 08/08/19 15:23 Dose: Not Given Documented by: JUDIT Temazepam (Restoril) 15 mg PO HSP PRN PRN Reason: Insomnia Last Admin: 08/08/19 22:03 Dose: 15 mg Documented by: CICI Shift Summary 08/09/19 04:34 Shift Summary by Evelyn Jaimes Patient alert and oriented x4. Patient with chronic pain from her back, neck and rt leg sciatica. Medicated with Percocet 5/325 1 tab + 2.5 mg Roxicodone together each time twice and Morphine 4 mg IV x1 with moderate effect. Uses K- pad for her back. Complained of itching last night. Given benadryl 25mg PO as ordered with good relief. Patient states she thinks its from the Robaxin. No shortness of breath noted. Up with standby assist to the bathroom. Voids adequately. Uses pull-ups for incontinence. Left knee dressing CDI. Cryo-cuff applied. AYLEEN pumps on bilateral feet. Tolerated CPM 0-45 degrees for 1.5 hours. Patient eating and drinking. IVF discontinued. IV on left index finger kept saline locked. Patient uses 2.5L nasal cannula at night, VSS. Initialized on 08/09/19 04:34 - END OF NOTE
[2019-08-09] MEDS: morphine 15 MG TABLET PO PRN ×4 (08:58→15:58)
[2019-08-09] MEDS: GABAPENTIN 300 MG CAPSULE PO SCH ×2 (08:59→14:41)
[2019-08-09] MEDS: CARVEDILOL 6.25 MG TABLET PO SCH (08:59)
[2019-08-09] MEDS: ASPIRIN 81 MG TAB.CHEW PO SCH (08:59)
[2019-08-09] MEDS: DOCUSATE SODIUM 100 MG CAPSULE PO SCH (08:59)
[2019-08-09] MEDS ORDERED: FUROSEMIDE 40 MG TABLET PO SCH (09:00)
[2019-08-09] MEDS ORDERED: FLUTICASONE PROPIONATE SPRAY.NAS NS SCH (09:00)
[2019-08-09] MEDS ORDERED: buPROPion 150 MG TAB.XL.24H PO SCH (09:00)
[2019-08-09] MEDS ORDERED: VITAMIN B COMPLEX 1 CAPSULE PO SCH (09:00)
[2019-08-09] MEDS: clonazePAM 1 MG TABLET PO SCH (09:00)
[2019-08-09] MEDS ORDERED: SPIRONOLACTONE 25 MG TABLET PO SCH (09:00)
[2019-08-09] MEDS ORDERED: FLU VACC QS2019-20(6MOS UP)/PF 60 MCG/0.5 ML SYRINGE IM ONE (10:00)
[2019-08-09] MEDS: LISINOPRIL 10 MG TABLET PO SCH (14:41)
--- NOTE | 2019-08-22 12:23 | Operative Note ---
DATE OF OPERATION: 08/08/2019 PREOPERATIVE DIAGNOSIS: Degenerative joint disease of the left knee. POSTOPERATIVE DIAGNOSIS: Degenerative joint disease of the left knee. OPERATION: Left total knee replacement with JORDAN assistance. SURGEON: Lucas Aguila MD TRASH MAN: Tomy Johns PA-C. This provider's expertise and technical skill were required throughout the case. The KE assisted with preoperative coordination, intraoperative retraction, wound closure, dressing and splint application, as well as postoperative documentation and care coordination. ANESTHESIA: General. TOURNIQUET TIME: 69 c ESTIMATED BLOOD LOSS: 100 mL SUMMARY OF PROCEDURE: General anesthesia was attained. The left leg was prepped and draped. A tourniquet was put up. Two stab incisions were made in the femur and two in the tibia. The appropriate pins were placed into each of the two bones. The array was next placed. I made a midline incision from the quadriceps to the tibial tubercle. This was taken down sharply. The quadriceps and medial retinaculum were next located. Quadriceps mid vastus approach was used. The quadriceps was split for about an inch and the vastus medialis split for about an inch. The medial retinaculum was split longitudinally. The patella was mobilized laterally. The anterior menisci were resected. The ACL was resected. The center of the hip was then located with counter rotation of the leg. I then identified under the robot the medial and lateral malleolus. A checkpoint was placed in the femur and another checkpoint in the tibia. I then did balancing of the flexion and extension gaps to 19 and 20 mm. We then registered 40 landmarks on the femur and 40 on the tibia. Then using the robotic arm, I made all the bone cuts. The bone was removed. A tibial trial was placed and the rotation adjusted and to external rotation which was confirmed with the robotic arm. The tibia sized to a 3. The femur also sized to a 3. We did trial reductions and the best combination of full range of motion with stability in all planes was with a 10 mm CR insert. I then everted the patella. I did a 9 to 10 mm measured resection leaving 14 mm of bone. The patella sized to a 32. I then trialed the patella with a no-touch test and there was no instability. The bone surfaces were irrigated throughout. The components were next cemented in. The cement was cured with the knee in extension and the patellar clamped. Excess cement was removed. The tourniquet was let down. All bleeding points were coagulated. The quadriceps and medial retinaculum were closed with running sutures of Stratafix. The subcutaneous tissue was closed with buried 2-0 Monocryl. The skin was closed with Durabond. A sterile compressive dressing was applied. Sponge, needle count was correct. The patient tolerated the procedure well and was taken to the recovery room in stable condition. TJF:conner Job ID: [id number] Doc ID: [id number] Lucas Aguila MD MTDD
== END 2019-08-09 16:55 | disposition home or self-care (01) ==
LOC: MEDSUR 04:58
PROVIDERS: ADMIT Orthopaedic Surgery Foot and Ankle Surgery; ATTEND Orthopaedic Surgery Foot and Ankle Surgery